=== PATIENT | male | born 1985 | race Caucasian/White ===

== ENCOUNTER → 2018-01-26 | Outpatient (REF) | payer BC ==
[~2018-01-26] MED LIST: HYDR-3716 PO; NAPR-885 PO
== END ==
LOC: M LAB REF 13:14
PROVIDERS: ATTEND Nurse Practitioner Family
DX: M54.9 Dorsalgia, unspecified (principal)

== ENCOUNTER 2018-10-19 11:32 | Day surgery (SDC) | payer BC ==
[~2018-10-19] VITALS: Ht 185.4 cm; Wt 118.8 kg
[~2018-10-19 11:32] MED LIST changes: +CYCL10TA PO; +NS 1,000 ML IV ONE; +OMEP40CA2 PO; +VENL150C43 PO
[2018-10-19] MEDS ORDERED: PROPOFOL 200 MG/20 ML VIAL As Ordered ONE ×2 (12:38→13:26)
[2018-10-19] MEDS ORDERED: LIDOCAINE 2% INJ 100 MG/5 ML SDV (FOR ANES.) As Ordered ONE (12:48)
--- NOTE | 2018-10-19 13:25 | ROOR ---
Patient Name: Tyrone Monterroso Procedure Date: 10/19/2018 1:05 PM Date of : 1985 Age: 33 Room: [facility] Gender: Male Note Status: Finalized Procedure: Upper GI endoscopy Indications: Heartburn Providers: Isacc PEREZ MD Referring MD: Jessica Casas DO Requesting Provider: Medicines: Monitored Anesthesia Care Complications: No immediate complications. Procedure: Pre-Anesthesia Assessment: - The heart rate, respiratory rate, oxygen saturations, blood pressure, adequacy of pulmonary ventilation, and response to care were monitored throughout the procedure. The Endoscope was introduced through the mouth, and advanced to the second part of duodenum. The upper GI endoscopy was accomplished without difficulty. The patient tolerated the procedure well. Findings: The Z-line was variable and was found 41 cm from the incisors. This was biopsied with a cold forceps for histology. The esophagus was normal. The stomach was normal. The examined duodenum was normal. Impression: - Normal esophagus. Z-line variable, 41 cm from the incisors. Biopsied. - Normal stomach. - Normal examined duodenum. Recommendation: - Follow an antireflux regimen. - Telephone endoscopist for pathology results in 2 weeks. Isacc Perez MD Isacc PEREZ MD 10/19/2018 1:24:48 PM Electronically signed by Isacc PEREZ MD Number of Addenda: 0 Note Initiated On: 10/19/2018 1:05 PM Estimated Blood Loss: Estimated blood loss: none.
[2018-10-19 13:50] VITALS: BP 145/82
== END 2018-10-19 13:56 | disposition home or self-care (01) ==
LOC: M OPP 11:32
PROVIDERS: ATTEND Internal Medicine Gastroenterology
DX: K22.8 Other specified diseases of esophagus (principal); R12 Heartburn

== ENCOUNTER → 2020-04-03 | Outpatient (CLI) | payer BC ==
[~2020-04-03] MED LIST changes: +CYCL-707 PO; -CYCL10TA PO; -NS 1,000 ML IV ONE; -OMEP40CA2 PO; +OMEP40CA97 PO
--- NOTE | 2020-04-03 09:58 | REP ---
INDICATION: PAIN. COMPARISON: None. TECHNIQUE: Three views right shoulder. FINDINGS: There is no evidence of acute fracture, dislocation or intrinsic bone disease. Appears to be a benign bone island in the humeral head. IMPRESSION: Unremarkable right shoulder series. <Electronically signed by Alexei Sheffield > 04/03/20 [id number]
== END ==
LOC: M WUC 08:54
PROVIDERS: ATTEND Internal Medicine
DX: M25.511 Pain in right shoulder (principal)

== ENCOUNTER → 2020-06-03 | Outpatient (CLI) | payer BC ==
[~2020-06-03] MED LIST changes: +ISOVUE-300 61% 50ML VIAL As Ordered ONE; +PROHANCE 279.3MG/ML 5ML VIAL As Ordered ONE
--- NOTE | 2020-06-03 11:02 | REP ---
INDICATION: INSTABILITY RT SHOULDER. Rule out rotator cuff tear. COMPARISON: Comparison right shoulder MR arthrography is from January 31, 2006. Comparison right shoulder radiographs are from April 03, 2020.. TECHNIQUE: The injection procedure is performed and dictated separately. Pre and post intra-articular gadolinium enhanced saline injected imaging is acquired. Imaging planes include axial, oblique coronal, oblique sagittal and ABER projection images. T1 and T2-weighted scans are included with and without fat saturation. FINDINGS: Pre-injection in imaging again demonstrated old subtle Hill-Sachs impaction deformity in the superolateral humeral head. Subcortical cyst formation is also noted posterolaterally and anteromedially. There is glenohumeral osteoarthritic spurring noted inferiorly. Severe chondromalacia is seen in the anterior aspect of the glenoid articular cartilage. There is a large subcortical cyst in the anterior bony glenoid on today's images. There is a glenohumeral joint effusion of moderate size. Heterogeneous signal intensity is seen in the subcoracoid recess fluid. I cannot exclude osteo cartilaginous loose body here. There is a 4 mm cartilaginous loose body adjacent to the biceps tendon in the biceps tendon sheath. Biceps tendon infraspinatus tendon and subscapularis tendons appear intact. There is again evidence of a superior and anterior labral tear. Not displaced. There is advanced tendinitis tendinosis change in the supraspinatus tendon on oblique coronal T1 weighted scans. No focal full-thickness supraspinatus tear is seen. There is mild osteoarthritic hypertrophy of the acromioclavicular joint. Post injection imaging today demonstrates good filling and enhancement. There is extensive synovial thickening visible diffusely with a pattern of numerous tiny low T1 low T2 signal intensity foci lining the synovium consistent with chronic synovitis. T1 fat sat postcontrast images demonstrate intrasubstance contrast enhancement in the supraspinatus tendon consistent with partial-thickness tear. IMPRESSION: Evidence of chronic synovitis. [place]-Sachs impaction deformity. 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 Nondisplaced superior labral cartilage tear. Advanced tendinitis tendinosis in the supraspinatus. Loose body in the biceps tendon sheath and questionable loose body in the subcoracoid recess. <Electronically signed by Sergio Laura > 06/03/20 [id number]
--- NOTE | 2020-06-03 11:56 | REP ---
INDICATION: INSTABILITY RIGHT SHOULDER. COMPARISON: None TECHNIQUE: The procedure was performed by EN Hurtado, under the direct supervision of Dr. Laura. The benefits and risks of the procedure were explained to the patient, and an informed consent was obtained. Directly prior to the start of the procedure, a formal time-out was completed in the procedure room. The right glenohumeral joint space was localized using fluoroscopic guidance. The skin was prepped and draped in a sterile fashion. Approximately 5 mL of 1% Lidocaine 10 mg/ml was used as a local anesthetic. Using fluoroscopic guidance, a #22 gauge spinal needle was inserted and advanced into the right glenohumeral joint space. Approximately 1 mL of Isovue 300 was injected to verify placement. Twelve mL of a solution containing 20 mL of sterile saline and 0.15 mL of ProHance was injected into the joint space. The needle was removed and the patient was taken to MRI for post procedural imaging. FINDINGS: The patient tolerated the procedure well and there were no immediate complications. IMPRESSION: Fluoroscopic guided MRI arthrogram injection of the right shoulder. 0.1 minutes of fluoroscopy time was utilized for this procedure. Some fluoroscopic images are performed with last image hold technology. These images require no additional radiation. <Electronically signed by Laverne Colunga > 06/03/20 [id number] <Electronically signed by Sergio Laura > 06/03/20 1152
== END ==
LOC: M RADPRO 08:28
PROVIDERS: ATTEND Physician Assistant
DX: M65.811 Other synovitis and tenosynovitis, right shoulder (principal); M75.91 Shoulder lesion, unspecified, right shoulder; M94.211 Chondromalacia, right shoulder; M25.311 Other instability, right shoulder
CPT/HCPCS: 23350; 73223; 77002; A9576; Q9967

== ENCOUNTER → 2021-02-15 | Outpatient (CLI) | payer BC ==
[~2021-02-15] MED LIST changes: +LIDOCAINE 1% MDV 20ML VIAL As Ordered ONE; +OMEP40CA4 PO; -OMEP40CA97 PO; -PROHANCE 279.3MG/ML 5ML VIAL As Ordered ONE; +TRIAMCINOLONE ACETONIDE SUSP 40 MG/ML VIAL (J3301) As Ordered ONE
== END ==
LOC: M RADPRO 11:01
PROVIDERS: ATTEND Orthopaedic Surgery
DX: M19.111 Post-traumatic osteoarthritis, right shoulder (principal)
CPT/HCPCS: 20610; 77002; J3301; Q9967

== ENCOUNTER → 2022-03-09 | Outpatient (CLI) | payer BC ==
[~2022-03-09] MED LIST changes: +**SFHN** LIDOCAINE 1% MDV 20ML VIAL ONE; +**SFHN** methylPREDNISolone 40MG 1ML VIAL ONE; +ISOVUE-300 61% 100ML VIAL ONE; -ISOVUE-300 61% 50ML VIAL As Ordered ONE; -LIDOCAINE 1% MDV 20ML VIAL As Ordered ONE; -TRIAMCINOLONE ACETONIDE SUSP 40 MG/ML VIAL (J3301) As Ordered ONE
== END ==
LOC: M PLAIMG 12:53
PROVIDERS: ATTEND Orthopaedic Surgery
DX: M19.011 Primary osteoarthritis, right shoulder (principal)

== ENCOUNTER → 2023-08-31 | Outpatient (REF) | payer BC ==
[~2023-08-31] MED LIST changes: -**SFHN** LIDOCAINE 1% MDV 20ML VIAL ONE; -**SFHN** methylPREDNISolone 40MG 1ML VIAL ONE; -ISOVUE-300 61% 100ML VIAL ONE
== END ==
LOC: M SFHCPLAZ 17:48
PROVIDERS: ATTEND Family Medicine
DX: E55.9 Vitamin D deficiency, unspecified (principal); E78.2 Mixed hyperlipidemia; E66.3 Overweight; R03.0 Elevated blood-pressure reading, without diagnosis of hypertension; M17.0 Bilateral primary osteoarthritis of knee; K21.00 Gastro-esophageal reflux disease with esophagitis, without bleeding; Z53.9 Procedure and treatment not carried out, unspecified reason

== ENCOUNTER → 2023-09-20 | Outpatient (CLI) | payer BC ==
[2023-09-20 11:46] LABS: BASO # 0.1 10^3/uL (0.0-0.2); EOS # 0.5 10^3/uL (0.0-0.5); EOS % 5.6 % (0.0-3.0); HEMATOCRIT 45.4 % (42.0-52.0); HEMOGLOBIN 15.7 g/dl (13.5-17.5); LYMPH # 2.3 10^3/uL (1.5-5.0); LYMPH % 27.7 % (24.0-44.0); MEAN CORPUSCULAR HGB CONC 34.6 g/dl (32.0-36.5); MEAN CORPUSCULAR VOLUME 92.7 fl (80.0-96.0); MONO # 0.5 10^3/uL (0.0-0.8); MONO % 6.3 % (2.0-8.0); NEUTROPHILS % 59.3 % (36.0-66.0); PLATELET COUNT, AUTOMATED 342 10^3/uL (150-450); WHITE BLOOD COUNT 8.4 10^3/uL (4.0-10.0)
[2023-09-20 11:57] LABS: ERYTHROCYTE SEDIMENTATION RATE 12 mm/hr (0-15)
[2023-09-20 12:05] LABS: HEMOGLOBIN A1c 5.3 % (4.0-6.0)
[2023-09-20 12:11] LABS: C REACTIVE PROTEIN QUANTITATIV < 0.40 MG/DL (<1.0)
[2023-09-20 12:13] LABS: ALBUMIN 4.3 G/DL (3.2-5.2); ALKALINE PHOSPHATASE 58 U/L (46-116); ALT/SGPT 11 U/L (7.0-40); AST/SGOT < 8 U/L (<34); BILIRUBIN,TOTAL 0.7 MG/DL (0.3-1.2); BLOOD UREA NITROGEN 10 MG/DL (9-23); CALCIUM LEVEL 9.4 MG/DL (8.5-10.1); CARBON DIOXIDE LEVEL 27 MMOL/L (20-31); CHLORIDE LEVEL 107 MMOL/L (98-107); CHOLESTEROL LEVEL 293 MG/DL (<200); CHOLESTEROL RISK RATIO 6.78 (<5); CREATININE FOR GFR 0.97 MG/DL (0.70-1.30); FREE T4 0.97 NG/DL (0.89-1.76); GLOMERULAR FILTRATION RATE > 60.0 (>60); GLUCOSE, FASTING 89 MG/DL (60-100); HDL CHOLESTEROL 43.2 MG/DL (>40); NON-HDL-C 249.8 MG/DL; POTASSIUM SERUM 4.4 MMOL/L (3.5-5.1); PTH INTACT 36.9 PG/ML (18.5-88.0); SODIUM LEVEL 136 MMOL/L (136-145); THYROID STIMULATING HORMONE 1.589 uIU/ML (0.55-4.78); TOTAL PROTEIN 7.6 G/DL (5.7-8.2); TRIGLYCERIDES LEVEL 159 MG/DL (<150)
[2023-09-20 12:14] LABS: FERRITIN 23.9 NG/ML (10.5-307.3); TOTAL 25(OH) VITAMIN D 30.4 NG/ML (20.0-100.0)
[2023-09-20 12:15] LABS: VITAMIN B12 LEVEL 287 PG/ML (211-911)
[2023-09-21 12:07] LABS: INSULIN LEVEL 19.7 uIU/mL (<=18.4)
[2023-09-22 00:52] LABS: CYCLIC CITRULLINATED PEPTIDE < 16 UNITS (<20)
[2023-09-22 11:03] LABS: ANA PATTERN Cytoplasmic (NEGATIVE); ANA SCREEN, IFA POSITIVE (NEGATIVE); ANA TITER 1:40 titer (<1:40)
== END ==
LOC: M PLALAB 07:09
PROVIDERS: ATTEND Family Medicine
DX: M17.0 Bilateral primary osteoarthritis of knee (principal); R03.0 Elevated blood-pressure reading, without diagnosis of hypertension; E55.9 Vitamin D deficiency, unspecified; E66.3 Overweight; E78.2 Mixed hyperlipidemia; K21.00 Gastro-esophageal reflux disease with esophagitis, without bleeding

== ENCOUNTER → 2023-10-24 | Outpatient (REF) | LOC: M PLAIMG 12:05 | PROVIDERS: ATTEND Internal Medicine | DX: Z00.00 Encounter for general adult medical examination without abnormal findings (principal) ==

== ENCOUNTER → 2024-04-22 | Outpatient (CLI) | payer BC ==
[2024-04-22 10:12] LABS: HEMATOCRIT 45.3 % (42.0-52.0)
[2024-04-22 10:20] LABS: BASO # 0.1 10^3/uL (0.0-0.2); BASO % 0.6 % (0.0-1.0); EOS # 0.2 10^3/uL (0.0-0.5); EOS % 2.6 % (0.0-3.0); HEMATOCRIT 45.6 % (42.0-52.0); HEMOGLOBIN 15.3 g/dl (13.5-17.5); LYMPH # 2.3 10^3/uL (1.5-5.0); LYMPH % 29.2 % (24.0-44.0); MEAN CORPUSCULAR HEMOGLOBIN 32.3 pg (27.0-33.0); MEAN CORPUSCULAR HGB CONC 33.6 g/dl (32.0-36.5); MEAN CORPUSCULAR VOLUME 96.4 fl (80.0-96.0); MONO # 0.4 10^3/uL (0.0-0.8); NEUTROPHILS % 62.2 % (36.0-66.0); PLATELET COUNT, AUTOMATED 294 10^3/uL (150-450); RED BLOOD COUNT 4.73 10^6/uL (4.30-6.10)
[2024-04-22 10:39] LABS: CPK CREATINE PHOSPHOKINASE 129 U/L (46-171); RHEUMATOID FACTOR QUANT < 3.5 IU/ML (<14)
[2024-04-22 10:43] LABS: FERRITIN 23.4 NG/ML (10.5-307.3)
[2024-04-22 10:44] LABS: VITAMIN B12 LEVEL 600 PG/ML (211-911)
[2024-04-24 15:17] LABS: ANA SCREEN, IFA NEGATIVE (NEGATIVE)
[2024-04-25 01:43] LABS: TISSUE TRANSGLUTAMINASE IgA < 1.0 U/mL (<15.0)
== END ==
LOC: M PLALAB 09:01
PROVIDERS: ATTEND Family Medicine
DX: D50.9 Iron deficiency anemia, unspecified (principal); E53.8 Deficiency of other specified B group vitamins; G89.4 Chronic pain syndrome; E78.2 Mixed hyperlipidemia

== ENCOUNTER → 2024-10-10 | Outpatient (CLI) | payer BC ==
[2024-10-10 10:34] LABS: PLATELET COUNT, AUTOMATED 344 10^3/uL (150-450)
[2024-10-10 10:35] LABS: INR 1.02
== END ==
LOC: M PLALAB 07:01
PROVIDERS: ATTEND Orthopaedic Surgery
DX: Z01.818 Encounter for other preprocedural examination (principal)

== ENCOUNTER → 2024-10-10 | Outpatient (CLI) | payer BC ==
[2024-10-10 10:34] LABS: BASO # 0.1 10^3/uL (0.0-0.2); BASO % 0.9 % (0.0-1.0); C REACTIVE PROTEIN QUANTITATIV < 0.50 MG/DL (<1.0); EOS # 0.4 10^3/uL (0.0-0.5); EOS % 4.4 % (0.0-3.0); LYMPH # 2.5 10^3/uL (1.5-5.0); LYMPH % 27.4 % (24.0-44.0); MONO # 0.6 10^3/uL (0.0-0.8); MONO % 6.3 % (2.0-8.0); NEUTROPHILS # 5.5 10^3/uL (1.5-8.5); NEUTROPHILS % 60.8 % (36.0-66.0); PLATELET COUNT, AUTOMATED 353 10^3/uL (150-450)
[2024-10-10 10:35] LABS: CHOLESTEROL LEVEL 317 MG/DL (<200); CHOLESTEROL RISK RATIO 6.21 (<5); LDL CHOLESTEROL 244.2 MG/DL (<100); NON-HDL-C 266.0 MG/DL; TRIGLYCERIDES LEVEL 109 MG/DL (<150)
[2024-10-10 10:37] LABS: VITAMIN B12 LEVEL 645 PG/ML (211-911)
[2024-10-10 10:42] LABS: CPK CREATINE PHOSPHOKINASE 100 U/L (46-171)
[2024-10-10 10:43] LABS: ERYTHROCYTE SEDIMENTATION RATE 21 mm/hr (0-15)
== END ==
LOC: M PLALAB 07:03
PROVIDERS: ATTEND Family Medicine
DX: R76.8 Other specified abnormal immunological findings in serum (principal); E78.2 Mixed hyperlipidemia; D50.9 Iron deficiency anemia, unspecified; E53.8 Deficiency of other specified B group vitamins